=== PATIENT | male | born 1955 | race Caucasian/White ===

== ENCOUNTER 2019-02-07 20:59 | Emergency (ER) | payer OTHER ==
[2019-02-07 21:16] VITALS: BP 146/103; PULSE 112; TEMP 98.2; BMI 29.2
[2019-02-07] MEDS ORDERED: SODIUM CHLORIDE 1,000 ML IV STA ×2 (22:32→23:29)
[2019-02-07] MEDS ORDERED: KETOROLAC TROMETHAMINE 30 MG/1 ML VIAL IVPUSH ONE (22:32)
[2019-02-07] MEDS ORDERED: ONDANSETRON 4 MG/2 ML VIAL IVPUSH ONE (23:29)
[2019-02-07] MEDS ORDERED: TAMSULOSIN HCL 0.4 MG CAP PO ONE (23:30)
[2019-02-07] MEDS ORDERED: TAMSULOSIN HCL 0.4 MG CAP ONE (23:34)
--- NOTE | 2019-02-08 01:35 | PDOC ---
Documentation entered by Dominga Gomez SCRIBE, acting as scribe for Anita Crouch MD. Anita Crouch MD: This documentation has been prepared by the [email or web address], Dominga Gomez SCRIBE, under my direction and personally reviewed by me in its entirety. I confirm that the documentation accurately reflects all work, treatment, procedures, and medical decision making performed by me. History of Present Illness - General Chief Complaint: Pain, Acute Stated Complaint: RIGHT FLANK PAIN - History of Present Illness Initial Comments: This 63 y.o. man with a hx of HTN, HLD, kidney stones presents with a 3 day history of progressive right CVA pain, eventually progressing to right flank and RLQ abdominal pain. Pain is similar to previous renal colic episodes. Today , pain became worse and he began to have nausea/vomiting with no relief after OTC meds. No fever/chills/dysuria/ gross hematuria. The patient has had 3 previous episodes of renal colic(all right sided): first 2 resulted in spontaneous stone passage with third requiring ESWL and stent placement. Pt's urologist is Dr Greenfield Past History - Past Medical History Allergies/Adverse Reactions: Allergies Allergy/AdvReac Type Severity Reaction Status Date / Time No Known Allergies Allergy Unverified 09/22/13 02:00 Home Medications: Ambulatory Orders Amlodipine Besylate [Norvasc -] 10 mg PO DAILY 02/07/19 Atorvastatin Ca [Lipitor] 20 mg PO HS 02/07/19 Lisinopril [Prinivil -] 40 mg PO DAILY 02/07/19 Metoprolol Succinate [Toprol Xl] 50 mg PO DAILY 02/07/19 Ondansetron [Zofran *Odt*] 4 mg SL BID #10 od.tablet 02/07/19 Oxycodone HCl/Acetaminophen [Percocet 5-325 mg Tablet] 1 tab PO Q6H PRN #20 tablet MDD 4 tabs 02/07/19 Tamsulosin HCl [Flomax] 0.4 mg PO DAILY #10 capsule 02/07/19 Cardiac Disorders: Yes HTN: Yes - Immunization History Immunization Up to Date: Yes - Psycho Social/Smoking Cessation Hx Smoking History: Never smoked Hx Alcohol Use: No Substance Use Type: None *Physical Exam - Vital Signs Last Vital Signs Temp Pulse Resp BP Pulse Ox 98.2 F 112 H 18 146/103 H 98 02/07/19 21:11 02/07/19 21:11 02/07/19 21:11 02/07/19 21:11 02/07/19 21:11 ED Treatment Course - ADDITIONAL ORDERS Additional order review: Laboratory Results 02/07/19 21:35 Urine Color Yellow Urine Appearance Slightly Urine pH 5.0 Urine Protein Trace Urine Glucose (UA) Negative Urine Ketones 1+ H Urine Blood 3+ H Urine Nitrite Negative Urine Bilirubin Negative Urine Urobilinogen 0.2 Ur Leukocyte Esterase Trace H Urine RBC 20-40 Urine WBC 10-20 Urine Bacteria Few - RADIOLOGY Radiology Studies Ordered: Category Date Time Status SPIRAL- RENAL-STONE CT [CT] Stat CT Scan 02/07/19 21:53 Completed - Medications Given in the ED: ED Medications Discontinued Medications Generic Name Dose Route Start Last Admin Trade Name Tigreq PRN Reason Stop Dose Admin Ketorolac Tromethamine 30 mg 02/07/19 22:32 02/07/19 22:30 Toradol Injection - IVPUSH 02/07/19 22:33 30 mg ONCE ONE Administration Medical Decision Making - Medical Decision Making The patient received 30mg Toradol IV and a liter of NS IV hydration with good relief of his symptoms. Urinalysis reveals 20-30 RBC/10-20WBC/few bact per HPF (Urine sent for C & S) Renal stone protocol Abd/Pelv CT performed: 4-5 mm stone seen in R ureter 4 cm proximal to UVP. mod hydro/ureteronephrosis as interpreted by Dr Herrmann of the radiology staff. Additional liter NS given IV Results discussed with patient and his . He continues to be comfortable. Flomax 0.4mg given. The patient was discharged with prescriptions for Zofran ODT/ Flomax and a small (#12) prescription for Percocet 5/325 to be used as needed (up to 4 tabs a day) for severe pain. The patient should call Dr Greenfield's office in the AM to arrange followup and return to the ER if he has recurrent severe pain Discharge - Discharge Information Problems reviewed: Yes Clinical Impression/Diagnosis: Renal colic on right side Condition: Stable Disposition: HOME - Additional Discharge Information Prescriptions: Ondansetron [Zofran *Odt*] 4 mg SL BID #10 od.tablet Oxycodone HCl/Acetaminophen [Percocet 5-325 mg Tablet] 1 tab PO Q6H PRN #20 tablet MDD 4 tabs PRN Reason: Severe Pain Tamsulosin HCl [Flomax] 0.4 mg PO DAILY #10 capsule - Follow up/Referral Referrals: Gabriele Greenfield MD., MD [Staff Physician] - - Patient Discharge Instructions Patient Printed Discharge Instructions: DI for Kidney Stones Additional Instructions: drink plenty of water Zofran ODT 4 mg as needed for nausea/vomiting Flomax 0.4 mg daily until seen by Dr Greenfield Ibuprofen/Acetaminophen as needed for mild to moderate pain Percocet 5/325 1 tablet every 6 hours as needed for severe pain followup with Dr Greenfield within 1 week return to ER if you have persistent severe pain - Post Discharge Activity
== END 2019-02-07 23:43 | disposition home or self-care (01) ==
LOC: FER 20:59
PROC: 3E0333Z Introduction of Anti-inflammatory into Peripheral Vein, Percutaneous Approach (ICD-10-PCS; principal; 2019-02-07)
PROC: 3E033GC Introduction of Other Therapeutic Substance into Peripheral Vein, Percutaneous Approach (ICD-10-PCS; 2019-02-07)
PROC: 3E0337Z Introduction of Electrolytic and Water Balance Substance into Peripheral Vein, Percutaneous Approach (ICD-10-PCS; 2019-02-07)
DX: N20.0 Calculus of kidney (principal); I10 Essential (primary) hypertension; E78.5 Hyperlipidemia, unspecified; I51.9 Heart disease, unspecified
CPT/HCPCS: 74176-TC; 81003; 81015; 87086; 99282-25; J7030